=== PATIENT | female | born 1950 ===

== ENCOUNTER 2018-03-28 17:34 | Emergency (ER) | payer MEDICARE ==
[~2018-03-28] VITALS: Ht 152.4 cm; Wt 58.5 kg
[2018-03-28] MEDS ORDERED: LOSARTAN POTAS100 MG PO (18:01)
[2018-03-28] MEDS ORDERED: ROSUVASTATIN CA20 MG PO (18:01)
[2018-03-28] MEDS ORDERED: AMIT25 PO (18:01)
[2018-03-28] MEDS ORDERED: Metformin HCl500 MG PO (18:01)
[2018-03-28] MEDS ORDERED: Estradiol0.5 MG PO (18:02)
[2018-03-28] MEDS ORDERED: Voltaren100 GM TOP (18:02)
[2018-03-28] MEDS ORDERED: TRULICITY0.75 MG/0. SC (18:02)
[2018-03-28] MEDS ORDERED: ACAR50 PO (18:10)
[2018-03-28 18:36] LABS: BASOPHILS ABSOLUTE AUTO 0.06 K/mm3 (0.00-0.23); BASOPHILS PERCENT AUTO 1 % (0-2); LYMPHOCYTES ABSOLUTE AUTO 2.94 K/mm3 (0.84-5.20); LYMPHOCYTES PERCENT AUTO 34 % (21-46); MONOCYTES ABSOLUTE AUTO 0.58 K/mm3 (0.16-1.47); MONOCYTES PERCENT AUTO 7 % (4-13); Mean Corpuscular HGB 29.7 pg (26.0-34.0); Mean Corpuscular HGB Conc 33.3 g/dL (31.5-36.5); Mean Corpuscular Volume 89 fL (80-100); Mean Platelet Volume 9.8 fL (9.1-12.4); Platelet Count 362 K/mm3 (150-400); RDW Coefficient Variation 13.9 % (11.7-14.2); RDW Standard Deviation 45.5 fL (35.1-46.3); Red Blood Cell Count 4.38 M/mm3 (3.80-5.20); White Blood Cell Count 8.66 K/mm3 (4.00-11.30)
[2018-03-28 18:56] LABS: EOSINOPHILS ABSOLUTE AUTO 0.61 K/mm3 (0.00-0.68); EOSINOPHILS PERCENT AUTO 7 % (0-6); IMMATURE GRAN ABSOLUTE AUTO 0.02 K/mm3 (0.00-0.10); IMMATURE GRAN PERCENT AUTO 0 % (0-1); NEUTROPHILS ABSOLUTE AUTO 4.45 K/mm3 (1.96-9.15); NEUTROPHILS PERCENT AUTO 52 % (41-73)
[2018-03-28 18:58] LABS: Alanine Aminotransfer (ALT/SGP 36 U/L (12-78); Albumin, Blood 3.8 g/dL (3.4-5.0); Alk Phos 75 U/L (50-136); Anion Gap 9 mmol/L (6-16); Aspartate Aminotrans (AST/SGOT 25 U/L (12-37); Bilirubin, Total 0.3 mg/dL (0.1-1.0); Blood Urea Nitrogen 20 mg/dL (8-24); Bun/Creatinine Ratio 31.8 (12.0-20.0); CO2, Blood 27 mmol/L (21-32); Calcium, Blood 9.2 mg/dL (8.5-10.1); Chloride, Blood 105 mmol/L (98-108); Creatinine, Blood 0.63 mg/dL (0.40-1.00); Globulin, Blood 3.7 g/dL (2.2-4.0); Glomerular Filtration Rate >60 (60-); Glucose, Blood 203 mg/dL (70-99); Potassium, Blood 3.7 mmol/L (3.5-5.5); Sodium, Blood 141 mmol/L (136-145); Total Protein, Blood 7.5 g/dL (6.4-8.2)
[2018-03-28] MEDS ORDERED: IBUP400 PO (19:12)
== END 2018-03-28 19:38 | disposition home or self-care (01) ==
LOC: ER 17:34
PROVIDERS: Emergency Medicine
DX: M79.642 Pain in left hand (principal); E11.65 Type 2 diabetes mellitus with hyperglycemia; Z88.5 Allergy status to narcotic agent; Z79.899 Other long term (current) drug therapy; Z79.84 Long term (current) use of oral hypoglycemic drugs
CPT/HCPCS: 36415; 70450; 80053; 85025; 93005; 93010

== ENCOUNTER 2019-06-01 05:54 | Day surgery (SDC) | payer MEDICARE ==
[~2019-06-01] VITALS: Ht 152.4 cm; Wt 58.4 kg
[~2019-06-01 05:54] MED LIST: ACAR50 PO; AMIT25 PO; ASPI81CH PO; CHELATED MAGNESIUM PO; CHOL10002 PO; Coq-10100 MG PO; Estradiol0.5 MG PO; FLAX OIL1000 MG PO; Fergon240 M1 PO; IBUP400 PO; JOINT HEALTH PO; LOSARTAN POTAS100 MG PO; MELATONIN5 M1 PO; Metformin HCl500 MG PO; OLIVE LEAF EXT250 MG PO; ROSUVASTATIN CA20 MG PO; TRULICITY0.75 MG/0. SC; TURMERIC PO; Voltaren100 GM TOP
--- NOTE | 2019-06-01 07:11 | NUR ---
History, Chart, Medications and Allergies reviewed before start of procedure. Lungs clear T/O to Auscultation. Patient confirms NPO status and agrees with scheduled surgery. Patient reports completing Chlorhexadine shower X2 prior to admission to hospital.
--- NOTE | 2019-06-01 17:01 | NUR ---
SHIFT SUMMARY S/P R TKA. VSS. MEDICATED WITH SCHEDULED TYLENOL, TORADOL, AND OXICODONE PER ORDERS FOR PAIN. POLAR ICE PACK IN PLACE. ROBBY WRAP REMAINS CDI. IVF INFUSING PER ORDERS. OOB WITH 1 SBA WITH WALKER AND DOING WELL. PT DID WORK WITH PHYSICAL THERAPY TODAY. PT IS OCCASSIONALLY NAUSEATED. X1 ZOFRAN GIVEN AND PT TRYING CARBONATED BEVERAGE AND CRACKERS. PT DID EAT AND TOLERATE SMALL AMOUNT OF LUNCH TRAY. FAMILY AT BEDSIDE FOR SUPPORT. PT USES CALL LIGHT APPROPRIATELY.
[2019-06-02 04:59] LABS: BASOPHILS ABSOLUTE AUTO 0.05 K/mm3 (0.00-0.23); BASOPHILS PERCENT AUTO 1 % (0-2); EOSINOPHILS ABSOLUTE AUTO 0.26 K/mm3 (0.00-0.68); EOSINOPHILS PERCENT AUTO 3 % (0-6); Hematocrit 33.7 % (33.0-51.0); Hemoglobin 11.2 g/dL (11.5-16.0); IMMATURE GRAN ABSOLUTE AUTO 0.02 K/mm3 (0.00-0.10); IMMATURE GRAN PERCENT AUTO 0 % (0-1); LYMPHOCYTES ABSOLUTE AUTO 2.32 K/mm3 (0.84-5.20); LYMPHOCYTES PERCENT AUTO 27 % (21-46); MONOCYTES ABSOLUTE AUTO 0.66 K/mm3 (0.16-1.47); MONOCYTES PERCENT AUTO 8 % (4-13); Mean Corpuscular HGB 29.9 pg (26.0-34.0); Mean Corpuscular HGB Conc 33.2 g/dL (31.5-36.5); Mean Corpuscular Volume 90 fL (80-100); Mean Platelet Volume 10.5 fL (9.1-12.4); NEUTROPHILS ABSOLUTE AUTO 5.25 K/mm3 (1.96-9.15); NEUTROPHILS PERCENT AUTO 61 % (41-73); Platelet Count 228 K/mm3 (150-400); RDW Standard Deviation 42.9 fL (35.1-46.3); Red Blood Cell Count 3.75 M/mm3 (3.80-5.20); White Blood Cell Count 8.56 K/mm3 (4.00-11.30)
[2019-06-02 05:20] LABS: Anion Gap 7 mmol/L (6-16); Blood Urea Nitrogen 13 mg/dL (8-24); CO2, Blood 29 mmol/L (21-32); Calcium, Blood 8.4 mg/dL (8.5-10.1); Chloride, Blood 104 mmol/L (98-108); Creatinine, Blood 0.54 mg/dL (0.40-1.00); Glomerular Filtration Rate >60 (60-); Glucose, Blood 113 mg/dL (70-99); Magnesium, Blood 1.9 mg/dL (1.6-2.4); Potassium, Blood 3.9 mmol/L (3.5-5.5); Sodium, Blood 140 mmol/L (136-145)
--- NOTE | 2019-06-02 05:44 | NUR ---
SHIFT SUMMARY: PT POD #1 FOR RT TKA. ROBBY WRAP AND POLAR PACK IN PLACE. VS STABLE T/O SHIFT. PT OUT OF BED WITH SBA AND FWW. ISAAC ACTIVITY WELL. VOIDING AND SALINE LOCKED. PAIN MANAGED WITH 2 OXY AND SCHED TORADOL AND TYLENOL. ISAAC PO. DENIES N/V. PLAN FOR PT TO WORK WITH THERAPY TODAY.
[2019-06-02] MEDS ORDERED: CLIN300 PO (09:23)
[2019-06-02] MEDS ORDERED: Bactrim Ds Tab1 EACH PO (09:23)
[2019-06-02] MEDS ORDERED: ENOX40I INJ (09:24)
[2019-06-02] MEDS ORDERED: Percocet 5-3251 EACH PO (09:24)
--- NOTE | 2019-06-02 13:14 | NUR ---
06/02/19 1314 Aniyah Reinoso VERIFICATIONS: EDIT CHART.
== END 2019-06-02 16:32 | disposition home or self-care (01) ==
LOC: ORSCMMR 05:54 → ORD 07:30 → SURS 10:50 → ORSCMMR 06-02 16:32
PROVIDERS: Orthopaedic Surgery
PROC: 0SRC0J9 Replacement of Right Knee Joint with Synthetic Substitute, Cemented, Open Approach (ICD-10-PCS; principal; 2019-06-01 07:30)
PROC: 8E0YXBZ Computer Assisted Procedure of Lower Extremity (ICD-10-PCS; principal; 2019-06-01 07:30)
DX: M17.11 Unilateral primary osteoarthritis, right knee (principal); I10 Essential (primary) hypertension; E11.9 Type 2 diabetes mellitus without complications; Z79.899 Other long term (current) drug therapy
CPT/HCPCS: 36415; 73560-RT; 80048; 82947; 83735; 85025; 88300; 97110; 97116; 97162; 97530; C1713; C1776; J0171; J0690; J0735; J1650; J1885; J2250; J2405; J2704; J2795; J3010; J7120; Q0163

== ENCOUNTER 2019-06-05 21:15 | Emergency (ER) | payer MEDICARE ==
[~2019-06-05] VITALS: Ht 152.4 cm; Wt 58.5 kg
[~2019-06-05 21:15] MED LIST changes: +Bactrim Ds Tab1 EACH PO; +CLIN300 PO; +ENOX40I INJ; +Percocet 5-3251 EACH PO
== END 2019-06-06 00:12 | disposition home or self-care (01) ==
LOC: ER 21:15
DX: M96.840 Postprocedural hematoma of a musculoskeletal structure following a musculoskeletal system procedure (principal); Z88.5 Allergy status to narcotic agent; Z79.899 Other long term (current) drug therapy; Z79.82 Long term (current) use of aspirin; Z79.84 Long term (current) use of oral hypoglycemic drugs; Z96.651 Presence of right artificial knee joint
CPT/HCPCS: 93971; 99283-25

== ENCOUNTER 2019-09-05 13:15 | Day surgery (SDC) | payer MEDICARE ==
[~2019-09-05] VITALS: Ht 152.4 cm; Wt 56.2 kg
[~2019-09-05 13:15] MED LIST changes: +COENZYME Q-1030 MG PO; +Crestor20 MG PO; +Estradiol1 MG PO; +Glucophage1000 MG PO; +MAGNESIUM OXID500 MG PO; +TRAM50 PO; +VITAMIN D31000 UNI2 PO; +VOLTAREN100 GM TOP
--- NOTE | 2019-09-05 13:44 | NUR ---
09/05/19 1344 Aniyah Engel FIRST IV STICK INFETRATED IN RIGHT HAND
--- NOTE | 2019-09-05 15:58 | NUR ---
09/05/19 1558 Tejal Lopez 9ML NACL WITH INDIGO USED FOR POLYP REMOVAL IN ASCENDING COLON
== END 2019-09-05 16:47 | disposition home or self-care (01) ==
LOC: ORSCSDS 13:15
PROVIDERS: Internal Medicine Gastroenterology
PROC: 3E0H8GC Introduction of Other Therapeutic Substance into Lower GI, Via Natural or Artificial Opening Endoscopic (ICD-10-PCS; principal; 2019-09-05 14:30)
PROC: 0DBK8ZX Excision of Ascending Colon, Via Natural or Artificial Opening Endoscopic, Diagnostic (ICD-10-PCS; principal; 2019-09-05 14:30)
PROC: 0DBH8ZX Excision of Cecum, Via Natural or Artificial Opening Endoscopic, Diagnostic (ICD-10-PCS; principal; 2019-09-05 14:30)
DX: R19.4 Change in bowel habit (principal); D12.0 Benign neoplasm of cecum; D12.2 Benign neoplasm of ascending colon; Z86.010 Personal history of colon polyps; K57.30 Diverticulosis of large intestine without perforation or abscess without bleeding; D64.9 Anemia, unspecified; E11.9 Type 2 diabetes mellitus without complications; I10 Essential (primary) hypertension; Z79.899 Other long term (current) drug therapy; Z79.82 Long term (current) use of aspirin; Z79.84 Long term (current) use of oral hypoglycemic drugs
CPT/HCPCS: 82947; 88305; J2704; J7120

== ENCOUNTER 2020-07-23 07:48 | Day surgery (SDC) | payer MEDICARE ==
[~2020-07-23] VITALS: Ht 152.4 cm; Wt 56.7 kg
--- NOTE | 2020-07-23 08:21 | NUR ---
07/23/20 0821 Kalli Beach 1 TRY RIGHT HAND VALVE IN THE WAY
== END 2020-07-23 10:23 | disposition home or self-care (01) ==
LOC: ORSCSDS 07:48
PROVIDERS: Internal Medicine Gastroenterology
PROC: 0DB78ZX Excision of Stomach, Pylorus, Via Natural or Artificial Opening Endoscopic, Diagnostic (ICD-10-PCS; principal; 2020-07-23 09:00)
PROC: 3E0H8GC Introduction of Other Therapeutic Substance into Lower GI, Via Natural or Artificial Opening Endoscopic (ICD-10-PCS; principal; 2020-07-23 09:00)
PROC: 0DBK8ZX Excision of Ascending Colon, Via Natural or Artificial Opening Endoscopic, Diagnostic (ICD-10-PCS; principal; 2020-07-23 09:00)
PROC: 0DB58ZX Excision of Esophagus, Via Natural or Artificial Opening Endoscopic, Diagnostic (ICD-10-PCS; principal; 2020-07-23 09:00)
DX: Z86.010 Personal history of colon polyps (principal); K57.30 Diverticulosis of large intestine without perforation or abscess without bleeding; K21.9 Gastro-esophageal reflux disease without esophagitis; D12.2 Benign neoplasm of ascending colon; R13.14 Dysphagia, pharyngoesophageal phase; I10 Essential (primary) hypertension; E11.9 Type 2 diabetes mellitus without complications; Z79.899 Other long term (current) drug therapy; Z79.84 Long term (current) use of oral hypoglycemic drugs
CPT/HCPCS: 82947; 87081; 88305; 88342; J0330; J0461; J2405; J2704; J7120

== ENCOUNTER → 2020-09-13 | Outpatient (CLI) | payer MEDICARE | END | disposition home or self-care (01) | LOC: PLD 08:09 → LAB SHORT 08:09 | DX: D16.4 Benign neoplasm of bones of skull and face (principal) | CPT/HCPCS: 88305 ==

== ENCOUNTER 2024-10-31 11:40 | Day surgery (SDC) | payer MEDICARE ==
[~2024-10-31] VITALS: Ht 152.4 cm; Wt 57.4 kg
[~2024-10-31 11:40] MED LIST changes: +FARXIGA5 MG PO; +FINA5 PO; +Lactated Ringer's 1,000 ML IV ONE; +MAGNESIUM250 MG PO; +METF500 PO; +METO25ER; +MINO2.5 PO; +propofoL 50 ML IV ONE
[2024-10-31] MEDS ORDERED: CO Q10100 MG (12:40)
[2024-10-31] MEDS ORDERED: VITAMIN D5000 UNIT (12:40)
[2024-10-31] MEDS ORDERED: MAGNESIUM 250MG (12:41)
[2024-10-31] MEDS ORDERED: PRED AC-MOXI-BRO5 M1 (12:42)
[2024-10-31] MEDS ORDERED: RYBELSUS7 MG (12:42)
[2024-10-31] MEDS ORDERED: TURMERIC500 M2 (12:43)
[2024-10-31] MEDS ORDERED: ZITIA (12:43)
[2024-10-31] MEDS ORDERED: Lactated Ringer's 1,000 ML IV ONE (13:14)
[2024-10-31 15:11] VITALS: BP 117/65
== END 2024-10-31 14:45 | disposition home or self-care (01) ==
LOC: ORSCSDS 11:40
PROVIDERS: Internal Medicine Gastroenterology
PROC: 0DBK8ZX Excision of Ascending Colon, Via Natural or Artificial Opening Endoscopic, Diagnostic (ICD-10-PCS; principal; 2024-10-31 13:00)
DX: R19.4 Change in bowel habit (principal); Z86.0101 Personal history of adenomatous and serrated colon polyps; D12.2 Benign neoplasm of ascending colon; E11.9 Type 2 diabetes mellitus without complications; Z79.84 Long term (current) use of oral hypoglycemic drugs; Z79.85 Long-term (current) use of injectable non-insulin antidiabetic drugs
CPT/HCPCS: 82947; 88305; J2704; J7120

== ENCOUNTER 2025-04-27 07:15 | Day surgery (SDC) | payer MEDICARE ==
[~2025-04-27] VITALS: Ht 149.9 cm; Wt 59.5 kg
[~2025-04-27 07:15] MED LIST changes: +CO Q10100 MG; -Lactated Ringer's 1,000 ML IV ONE; +MAGNESIUM 250MG; +PRED AC-MOXI-BRO5 M1; +RYBELSUS7 MG; +TURMERIC500 M2; +VITAMIN D5000 UNIT; +ZITIA; -propofoL 50 ML IV ONE
[2025-04-27 10:08] VITALS: BP 108/60
== END 2025-04-27 09:40 | disposition home or self-care (01) ==
LOC: ORSCSDS 07:15
PROVIDERS: Internal Medicine Gastroenterology
PROC: 0DBH8ZX Excision of Cecum, Via Natural or Artificial Opening Endoscopic, Diagnostic (ICD-10-PCS; principal; 2025-04-27 08:45)
PROC: 0DBK8ZX Excision of Ascending Colon, Via Natural or Artificial Opening Endoscopic, Diagnostic (ICD-10-PCS; principal; 2025-04-27 08:45)
DX: Z12.11 Encounter for screening for malignant neoplasm of colon (principal); Z86.0100 Personal history of colon polyps, unspecified; K63.5 Polyp of colon; E11.9 Type 2 diabetes mellitus without complications; K21.9 Gastro-esophageal reflux disease without esophagitis; I10 Essential (primary) hypertension; E78.5 Hyperlipidemia, unspecified; Z79.84 Long term (current) use of oral hypoglycemic drugs; Z79.899 Other long term (current) drug therapy
CPT/HCPCS: 82947; 88305; J2704; J7120

== ENCOUNTER → 2025-05-25 | Outpatient (CLI) | payer MEDICARE | LOC: LAB 14:49 → LAB SHORT 14:49 | DX: L08.0 Pyoderma (principal) | CPT/HCPCS: 87070 ==

== ENCOUNTER → 2025-06-22 | Outpatient (CLI) | payer MEDICARE ==
[2025-06-22 15:12] LABS: Creatinine, Urine Random 35.9 mg/dL (27.00-270.00); Microalb/Creat Ratio UR, Rand 171.309 mg/g (0.000-30.000); Microalbumin, Random Urine 61.5 mg/L (0.000-20.000)
== END | disposition home or self-care (01) ==
LOC: LAB SHORT 13:05 → LAB 13:05
PROVIDERS: Internal Medicine
DX: E11.29 Type 2 diabetes mellitus with other diabetic kidney complication (principal); R80.0 Isolated proteinuria
CPT/HCPCS: 82043; 82570

== ENCOUNTER → 2025-07-03 | Outpatient (CLI) | payer MEDICARE ==
[2025-07-03 13:58] LABS: Source, Urine Clean Catch
[2025-07-03 15:22] LABS: Bilirubin, Urine Neg (Neg); Color, Urine Yellow (P-Yellow); Glucose Qualitative, Urine 4+ (Neg); Ketones, Urine 1+ (Neg); Leukocyte Esterase, Urine 1+ (Neg); Protein, Urine 1+ (Neg); Specific Gravity, Urine 1.015 (1.003-1.022); Urobilinogen, Urine NORM (Normal)
[2025-07-03 16:09] LABS: Red Blood Cells, Urine 0-2 /hpf (0-2)
[2025-07-03 16:10] LABS: Yeast/Fungi Urine Rare /hpf
[2025-07-03 16:11] LABS: Bacterial Vaginosis PCR Negative (NEGATIVE); Candida glabrata-krusei, PCR NOT DETECTED (NOT DETECT)
[2025-07-03 16:12] LABS: Candida Group, PCR DETECTED (NOT DETECT)
== END ==
LOC: LAB SHORT 13:55 → LAB 13:55
PROVIDERS: Internal Medicine
DX: N76.0 Acute vaginitis (principal); R30.0 Dysuria
CPT/HCPCS: 81001; 81515; 87086

== ENCOUNTER → 2025-07-29 | Outpatient (CLI) | payer MEDICARE ==
[2025-07-29 12:14] LABS: Source, Urine Clean Catch
[2025-07-29 12:30] LABS: Red Blood Cells, Urine 0-2 /hpf (0-2); White Blood Cells, Urine 0-2 /hpf (0-5); Yeast/Fungi Urine Rare /hpf
[2025-07-29 14:47] LABS: Bacterial Vaginosis PCR Negative (NEGATIVE); Candida glabrata-krusei, PCR NOT DETECTED (NOT DETECT)
[2025-07-29 14:49] LABS: Candida Group, PCR DETECTED (NOT DETECT)
== END ==
LOC: LAB 12:09 → LAB SHORT 12:09
PROVIDERS: Emergency Medicine
DX: R30.0 Dysuria (principal); Z87.42 Personal history of other diseases of the female genital tract
CPT/HCPCS: 81015; 81515; 87086

== ENCOUNTER → 2025-08-11 | Outpatient (CLI) | payer MEDICARE ==
[2025-08-11 15:43] LABS: Bacterial Vaginosis PCR Negative (NEGATIVE); Candida glabrata-krusei, PCR NOT DETECTED (NOT DETECT)
[2025-08-11 15:45] LABS: Candida Group, PCR DETECTED (NOT DETECT)
== END ==
LOC: LAB SHORT 13:24 → LAB 13:24
PROVIDERS: Student in an Organized Health Care Education/Training Program
DX: B37.31 Acute candidiasis of vulva and vagina (principal)
CPT/HCPCS: 81515

== ENCOUNTER → 2025-09-06 | Outpatient (CLI) | payer MEDICARE ==
[2025-09-06 15:31] LABS: Bacterial Vaginosis PCR Negative (NEGATIVE); Candida glabrata-krusei, PCR NOT DETECTED (NOT DETECT)
[2025-09-06 15:34] LABS: Candida Group, PCR DETECTED (NOT DETECT)
== END ==
LOC: LAB 09:20 → LAB SHORT 09:20
PROVIDERS: Family Medicine
DX: N89.8 Other specified noninflammatory disorders of vagina (principal)
CPT/HCPCS: 81515